=== PATIENT | male | born 1965 | race Caucasian/White ===

== ENCOUNTER 2023-01-05 13:56 | Outpatient (CLI) | payer MEDICAID, SELFPAY | END 2023-01-05 13:57 | disposition home or self-care (01) | PROVIDERS: PCP Physician Assistant; Visit Provider Surgery | DX: K40.90 Unilateral inguinal hernia, without obstruction or gangrene, not specified as recurrent (principal) | CPT/HCPCS: 36415; 86850; 86900; 86901 ==

== ENCOUNTER 2023-01-09 01:03 | Day surgery (SDC) | payer MEDICAID, SELFPAY ==
[2023-01-02 13:16] VITALS: BMI 36.9
--- NOTE | 2023-01-02 13:22 | PC.NURSE ---
Report to the Outpatient Waiting Room, entrance under the green pavilion located off [facility], at time 10:00 on date 01/09/23. Planned Procedure Time: 12:00. Time changes happen often and if your time is changed the preop area will call you the afternoon before. - You and your visitor will be asked to self-screen and do not enter if you have any COVID symptoms. - A mask is optional within the hospital at this time. Patients may have clear liquids (water, carbonated beverages, clear teas, apple juice) until 3 hours prior to surgery (9:00) with a maximum of 20 ounces. - No food from midnight until time of surgery Take the following medications with a SIP of water the morning of surgery: PAIN PILL IF NEEDED DO NOT STOP ANY OF YOUR OTHER PRESCRIPTION MEDICATIONS PRIOR TO SURGERY EXCEPT THE FOLLOWING Medications to discontinue per physician: IBUPROFEN Date to take last dose: PER DR. SARABIA Please no make-up, nail ukrainian, hairspray, perfume, deodorant, or body powder the day of surgery. No jewelry (including any body piercings) or valuables the day of surgery, leave them at home. Please take a shower or bath the night before, or the morning of, surgery with an antibacterial soap (HIBICLENS). Wear comfortable, loose fitting clothing. - Jewelry must be removed prior to entering the operating room. Rings and piercings that are not removed may be cut off. - The hospital will not accept responsibility for valuables. - Please leave all valuables, including medications, at home the day of surgery. If you are going home after surgery, a licensed medical van driver must drive you home. - NO public transportation without another adult if you receive anesthesia. - We recommend that an adult stay with you for 24 hours following discharge. - We also recommend that you do not drive, make important decision, drink alcoholic beverages, or take any drugs that were not prescribed by your health care provider for at least 24 hours after your discharge time. Follow any additional instructions given to you from your surgeon. If you or anyone in your household have experienced Covid symptoms in the past week, please notify your surgeon or the nurse liaison at the phone number below for possible testing. Telephone instructions given to PT - [address] and asked if any additional questions and then verbalized understanding. Patient advised to call surgeon office or pre surgery nurse liaison [phone] if any additional questions.
--- NOTE | 2023-01-08 15:34 | P.PNAN_ITS ---
Anes - Initial Pre Proc Eval Procedure: Operation Date: 01/09/23 12:00 Proposed Procedures p Robotic Assisted Laparoscopic Left Inguinal Hernia Repair with Mesh, Possible Right Inguinal Hernia Repair - Audi Smith MD Date/Time: 01/08/23 15:34 Surgeon: Audi Smith MD Pre Op Diagnosis: Reducible Lt Ing Hernia Patient Data Age: 57 Gender: M Height: 1.85 m Weight: 127 kg Allergies Allergy/AdvReac Type Severity Reaction Status Date / Time Penicillins AdvReac Intermediate Hives Verified 01/09/23 10:04 Home Medications Medication Instructions Recorded Confirmed Type ibuprofen 200 mg capsule 200 mg PO Q6H PRN Pain 01/01/23 01/09/23 History oxycodone-acetaminophen 5 mg-325 1 tablet PO Q6H PRN pain #15 tabs 01/02/23 01/02/23 Rx mg tablet (Percocet) Patient hx anesthesia problems: none Family hx anesthesia problems: none Results Review: All pre-operative results and documents have been reviewed as part of the pre- operative evaluation. FORMERLY [facility], [facility] Past Medical History Medical History (Updated 01/08/23 @ 15:35 by Ankur Herbert MD) Left inguinal hernia Obesity Family History Family History Father Heart disease Social History Social History Smoking status: Former smoker Tobacco type: cigars Smoking end date: 09/10/19 Alcohol intake: current Drinks per week: 8 Alcohol use details: social Substance use: never Substance use type: does not use Living arrangements: with family Occupation/Education: occupation Additional occupation/education comments: Self Employed Spiritual care concerns: No Anes - Eval Final PreProcedure Day of Procedure 01/08/23 15:34 Patient weight: obese Heart: regular rate and rhythm Lungs: clear to auscultation and normal air movement Airway: Mallampati scale class II Neurological: alert and oriented Last oral intake: >/= 8 hours ASA classification: II Emergent: no Anesthetic plan: proceed Anesthesia type and monitoring: general ETT Results Review: All pre-operative results and documents have been reviewed as part of the pre- operative evaluation. Informed Consent: The patient's anesthetic plan and its attendant risks and benefits were discussed with the patient/family/POA. Questions were solicited and answers provided to the satisfaction of the patient/family/POA.
[2023-01-09] VITALS (10 sets, daily range): BP systolic 123–141; BP diastolic 68–93; PULSE 62–88; RESP 12–16; TEMP 36.3–36.8; O2SAT 96–100
[2023-01-09] MEDS: ACETAMINOPHEN 500 MG TABLET 1000 MG PO (10:45)
[2023-01-09] MEDS: LACTATED RINGERS 1,000 ML 30 ML IV CONT ×3 (10:50→18:45)
[2023-01-09] MEDS: KETOROLAC 15 MG/ML VIAL (*BKC) IV PUSH (11:07)
--- NOTE | 2023-01-09 11:17 | SUR.PREOP ---
Discussed delay to 1230 or 1245 with patient and visitor. Voices understanding.
--- NOTE | 2023-01-09 12:00 | WPDHPUPDATE1 ---
History and Physical Update Update Date/Time: 01/09/23 12:00 History and Physical has been reviewed, including an updated exam of the patient. There are NO changes in the patient's condition. Risks, benefits, and alternatives have been discussed and questions answered. Patient agrees to proceed with procedure.
[2023-01-09] MEDS: ceFAZolin 3 GM/D5W 100 ML 100 ML IVPB (14:28)
[2023-01-09] MEDS: LIDO 1%/EPINEPHRINE 1:100,000 20 ML VIAL 30 ML INFILTRATE (16:30)
[2023-01-09] MEDS: BUPivacaine HCL 0.5% PF 30 ML VIAL INFILTRATE (16:30)
[2023-01-09] MEDS: fentaNYL CITRATE INJ (*CRX) 100 MCG/2 ML VIAL 25 MCG IV PUSH ×8 (17:26→17:51)
[2023-01-09] MEDS: oxyCODONE HCL (*CRX) 5 MG TAB IR PO (18:17)
--- NOTE | 2023-01-09 18:34 | SUR.PHASEII ---
DRINKING LOTS OF WATER.
--- NOTE | 2023-01-11 11:56 | W.PM.PROC2 ---
Procedure Note - Detailed Date of Procedure 01/09/23 Pre-op Diagnosis Reducible Lt Ing Hernia Post-op Diagnosis Same Procedure Performed Robotic assisted laparoscopic left inguinal hernia repair with Bard extra large 3D mid weight mesh (17 x 12cm). Surgeon Audi Smith MD Floral Assistant Naveen [employer] Anesthesia General Indications Patient is a 57 year old gentleman who noted feeling pain in his left groin after a picking up heavy objects. He on examination was noted to have a reducible left inguinal hernia. He presents now for elective robotic assisted laparoscopic left inguinal hernia repair with mesh. Findings Patient had an indirect inguinal hernia with a large cord lipoma it extending into the left inguinal canal. No evidence of right inguinal hernia. Description of Procedure After informed consent was obtained the patient was brought to the operating room was placed in supine position and general endotracheal anesthesia was administered. The abdomen and bilateral groin regions were then prepped and draped in usual sterile fashion. A time-out was then performed correctly identifying the patient as well as procedure to be performed verifying the site marking. He was given perioperative IV antibiotics. First started by gaining access in the abdomen placing a 10mm Optiview port in left upper quadrant with a direct optical insertion. Insufflated the abdomen to an adequate pneumoperitoneum 15mmHg of CO2. I then placed 8mm robotic trocar ports across the mid abdomen. I then looked into the groin regions and there was no evidence of a right inguinal hernia. There was a moderately large indirect left inguinal hernia. I then had the dementia robot docked to the patient's right side of the bed and then the robotic arms were attached the robotic ports. Robotic instruments were then advanced into the abdomen under direct visualization. I then sat down at the robotic console to perform the dissection robotically. I 1st started by creating a preperitoneal flap starting anterior medial to the left anterior superior iliac spine extending across the lower abdominal wall to the midline. Divided the left median umbilical ligament. I continued my dissection distally in the preperitoneal space down to the indirect inguinal hernia sac which was protruding into the inguinal canal. Medially I identified the inferior epigastric vessels and continue my dissection more medially until I duct identified the pubic tubercle. I dissected posterior to the bladder in this region down the space of Retzius for a couple of cm. Sections extended across the midline of the pubic symphysis. I then proceeded to reduce dissect the indirect inguinal hernia sac off of the cord structures. Found very large cord lipoma which was extending into the indirect inguinal hernia defect. I very carefully dissected the large cord lipoma away from the testicular vessels and vas deferens. It was dissected all the way up proximally up onto the psoas muscle and then divided. At fatty tissue was left in the abdomen to be removed at a later time. Continue my dissection of the spermatic cord up onto the psoas muscle until I saw the vas deferens separate from the macular vessels. The peritoneal flap was dissected proximally up onto the was muscle as well. I inspected the femoral space and there is no evidence of a femoral hernia. There was evidence of a direct left inguinal hernia. I then measured the space for the mesh and I extra large Bard 3D mid weight mesh measuring 17cm in length by 12cm in with. The piece of mesh chosen was oriented for the left-sided was placed into the abdomen through the left upper quadrant bedside occupational therapist's assistant trocar port. It was then placed into the dissected space the left groin region and spread out very nicely. The medial portion of the mesh overlapped the pubic tubercle in the edge extended down into the space of Retzius for couple cm. The mesh covered very nice
== END 2023-01-09 20:01 | disposition home or self-care (01) ==
PROVIDERS: PCP Physician Assistant; Visit Provider Surgery
PROC: 8E0Y4CZ Robotic Assisted Procedure of Lower Extremity, Percutaneous Endoscopic Approach (ICD-10-PCS; CPT 49650; principal; 2023-01-09 12:00)
DX: K40.90 Unilateral inguinal hernia, without obstruction or gangrene, not specified as recurrent (principal); D17.6 Benign lipomatous neoplasm of spermatic cord; Z87.891 Personal history of nicotine dependence; E66.9 Obesity, unspecified; Z68.35 Body mass index [BMI] 35.0-35.9, adult
CPT/HCPCS: 49650; S2900; A9270; C1781; J0461; J0690; J1100; J1885; J2250; J2405; J2704; J2710; J3010; J7030; J7120

== ENCOUNTER 2024-10-22 15:02 | Outpatient (CLI) | payer MEDICAID, SELFPAY ==
--- NOTE | ~2024-10-22 | XR_ITS ---
EXAMINATION: XR hand LT min 3V, XR hand RT min 3V DATE: 10/22/2024 15:40 INDICATION: Joint pain at the bilateral hands TECHNIQUE: 1. Posteroanterior, oblique and lateral views of the left hand were obtained. 2. Posteroanterior, oblique and lateral views of the right hand were obtained. COMPARISON: None. FINDINGS: Normal alignment at both hands. No fractures. 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 At the right hand this is of moderate severity at the second metacarpophalangeal and second distal inte rphalangeal joints, mild to moderate at the right first carpometacarpal, first metacarpophalangeal an d first interphalangeal joints and mild at the distal radioulnar, midcarpal, triscaphe and many of th e remaining metacarpophalangeal and interphalangeal joints. At the left hand this is of mild to moderate severity at the first metacarpophalangeal and first inte rphalangeal joints and mild at the wrist, midcarpal, triscaphe, first carpometacarpal and at many of the remaining metacarpophalangeal and interphalangeal joints. No erosions at either hand to suggest o steoarthritis. IMPRESSION: 1. Mild to moderate polyarticular osteoarthritis at the bilateral hands as detailed above, slightly w orse in the right hand. Reviewed, dictated and finalized at location A. 'S DESIGNER IMPRESSION: 1. Mild to moderate polyarticular osteoarthritis at the bilateral hands as deta iled above, slightly worse in the right hand.
[2024-10-22 15:37] LABS: Basophils Absolute Auto 0.1 K/mm3 (0.0-0.1); Basophils Percent Auto 0.9 % (0.2-1.2); Eosinophils Absolute Auto 0.2 K/mm3 (0-0.3); Eosinophils Percent Auto 2.2 % (0-4.4); Hematocrit 42.2 % (42.0-52.0); Hemoglobin 13.9 g/dL (14.0-18.0); Immature Granulocyte Absolute 0.02 K/mm3 (0.00-0.031); Immature Granulocyte Percent A 0.3 % (0-0.5); Lymphocytes Absolute Auto 2.11 K/mm3 (0.9-3.2); Lymphocytes Percent Auto 28.4 % (18.3-44.2); Mean Corpuscular HGB Conc 32.9 g/dl (32-36); Mean Corpuscular Hemoglobin 30.2 pg (26-34); Mean Corpuscular Volume 91.7 fl (80-100); Mean Platelet Volume 9.3 fl (7.4-10.4); Monocytes Absolute Auto 0.6 K/mm3 (0.1-0.6); Monocytes Percent Auto 7.8 % (2.6-8.5); Neutrophils Absolute Auto 4.5 K/mm3 (1.3-6.7); Neutrophils Percent Auto 60.4 % (45.5-73.1); Platelet Count Result 189 k/mm3 (150-375); White Blood Count 7.4 K/mm3 (4.5-10.0)
[2024-10-22 15:49] LABS: Rheumatoid Factor < 12.0 IU/ML (<12)
[2024-10-22 16:15] LABS: Erythrocyte Sedimentation Rate 12 mm/hr (0-20)
[2024-10-22 16:22] LABS: Alanine Aminotransferase 40 U/L (6-50); Albumin Level 4.1 g/dL (3.5-5.1); Alkaline Phosphatase 66 U/L (38-126); Anion Gap 8 mmol/L (4-12); Aspartate Amino Transferase 29 U/L (17-59); Bilirubin,Total 0.4 mg/dL (0.2-1.3); Blood Urea Nitrogen 18 mg/dL (9-20); CRP < 0.5 mg/dL (<1.0); Calcium 8.6 mg/dL (8.4-10.2); Carbon Dioxide 26 mmol/L (22-30); Chloride 103 mmol/L (98-107); Estimated Glomerular Filt Rate > 60; Glucose 59 mg/dL (65-110); Potassium 4.1 mmol/L (3.4-5.0); Sodium 137 mmol/L (137-145)
[2024-10-24 05:48] LABS: SS-A <1.0 NEG AI (<1.0 NEG); SS-B <1.0 NEG AI (<1.0 NEG)
[2024-10-24 15:23] LABS: Cyclic Citrullinated Peptide <16 UNITS
== END 2024-10-22 15:03 | disposition home or self-care (01) ==
PROVIDERS: PCP Physician Assistant
DX: M25.542 Pain in joints of left hand (principal); M25.541 Pain in joints of right hand
CPT/HCPCS: 36415; 73130; 80053; 85025; 85652; 86038; 86039; 86140; 86200; 86235; 86430